=== PATIENT | female | born 1990 | race Caucasian/White ===

== ENCOUNTER 2016-11-29 02:33 | Emergency (ER) | payer SELFPAY ==
[2016-11-29 02:44] VITALS: TEMP 97.9
[2016-11-29 03:19] LABS: ADJUSTED CALCIUM 8.8 mg/dL (8.4-10.2); ALBUMIN 4.3 gm/dL (3.5-5.0); BILIRUBIN,TOTAL 0.4 mg/dL (0.0-1.0); CREATININE, serum 0.82 mg/dL (0.52-1.25); POTASSIUM 3.4 mmol/L (3.4-5.0); TOTAL PROTEIN 7.8 gm/dL (6.4-8.2)
[2016-11-29 04:55] VITALS: BP 100/76; PULSE 99
== END 2016-11-29 04:55 | disposition home or self-care (01) ==
LOC: COL.ER 02:33
PROVIDERS: Emergency Medicine
DX: F10.129 Alcohol abuse with intoxication, unspecified (principal); F90.9 Attention-deficit hyperactivity disorder, unspecified type
CPT/HCPCS: J2405; J7030